=== PATIENT | female | born 1955 | race Caucasian/White ===

== ENCOUNTER 2021-03-02 10:36 | Outpatient (CLI) | payer MEDICARE, OTHER, SELFPAY ==
[2021-03-02 11:25] LABS: INR 0.9; Prothrombin Time 11.9 Seconds (11.1-14.7)
[2021-03-02 11:26] LABS: Partial Thromboplastin Time 27.2 SECONDS (22.3-36.8)
[2021-03-02 11:28] LABS: Anion Gap 7 mmol/L (8-16); Blood Urea Nitrogen 14 mg/dL (7-17); Calcium 9.5 mg/dL (8.4-10.2); Carbon Dioxide 29 mmol/L (22-30); Chloride 103 mmol/L (98-107); Estimated Glomerular Filt Rate > 60; Glucose 97 mg/dL (65-110); Potassium 4.2 mmol/L (3.4-5.0); Sodium 139 mmol/L (137-145)
== END 2021-03-02 10:37 | disposition home or self-care (01) ==
LOC: ANHSURGERY 10:44
PROVIDERS: Anesthesiology; PCP Urology; Visit Provider Obstetrics & Gynecology Gynecology
DX: N28.9 Disorder of kidney and ureter, unspecified (principal); Z01.818 Encounter for other preprocedural examination
CPT/HCPCS: 36415; 80048; 85610; 85730

== ENCOUNTER 2021-03-13 01:00 | Day surgery (SDC) | payer MEDICARE, OTHER, SELFPAY ==
[2021-02-28 13:41] VITALS: BMI 32.9
--- NOTE | 2021-03-13 08:26 | WPDHPUPDATE1 ---
History and Physical Update Update Date/Time: 03/13/21 08:26 History and Physical has been reviewed, including an updated exam of the patient. There are NO changes in the patient's condition. Risks, benefits, and alternatives have been discussed and questions answered. Patient agrees to proceed with procedure.
--- NOTE | 2021-03-13 08:26 | PM.HPGS ---
History of Present Illness History of Present Illness Consent: Risks, benefits, and alternatives have been discussed and questions answered. Patient agrees to proceed with procedure. Chief complaint: thick endometrial lining Narrative: Maddie Azar is a 65 year old female a CT scan performed while admitted for colitis which revealed a thickened endometrial lining. The patient denies vaginal bleeding. Pelvic ultrasound was performed and revealed the lining to be thickened at 6.7mm. The patient had similar findings in 2013 and underwent D&C hysteroscopy with benign atrophic findings. It was discussed with the patient and and options to follow versus D and C hysteroscopy were reviewed. Patient opted to proceed with D&C hysteroscopy. Risks of infection, bleeding, and perforation were reviewed. Possible pathology was also discussed. Patient voices understanding and agrees to proceed. Review of Systems Review of Systems: not repeated day of surgery; patient states no changes in status [facility] Past Medical History Medical History (Updated 03/13/21 @ 08:51 by Marii Armstrong MD) Anxiety HTN (hypertension) Hypothyroid Migraines (normal spontaneous vaginal delivery) Status post hysteroscopy Surgical History Surgical History (Updated 03/13/21 @ 08:30 by Marii Armstrong MD) Status post cardiac catheterization Status post cholecystectomy Status post tubal ligation Social History Social History Smoking status: Never smoker Alcohol intake: never Substance use: never Living arrangements: with family Additional living arrangements comments: [facility] Spiritual care concerns: No Meds Home Medications and Allergies Home Medications Medication Instructions Recorded Confirmed Type L.acid-L.casei-B.bif-B.reta-FOS 1 cap PO DAILY 02/28/21 02/28/21 History [Probiotic Blend] alprazolam [Xanax] 0.25 mg PO BID PRN 02/28/21 02/28/21 History aspirin [Aspir-81] 81 mg PO DAILY 02/28/21 02/28/21 History cholecalciferol (vitamin D3) 50 mcg PO DAILY 02/28/21 02/28/21 History levothyroxine 50 mcg PO QAM 02/28/21 02/28/21 History losartan 100 mg PO QPM 02/28/21 02/28/21 History montelukast 10 mg PO QPM 02/28/21 02/28/21 History multivitamin [Multiple Vitamin] 1 tablet PO DAILY 02/28/21 02/28/21 History omega-3 fatty acids-vitamin E 1 cap PO DAILY 02/28/21 02/28/21 History [Fish Oil] omeprazole 20 mg PO QPM 02/28/21 02/28/21 History Allergies Allergy/AdvReac Type Severity Reaction Status Date / Time azithromycin Allergy Unknown Redness of Verified 03/13/21 08:47 Skin morphine Allergy Unknown MAKES Unverified 03/13/21 08:47 CHEST HURT Sulfa (Sulfonamide Allergy Unknown redness of Verified 03/13/21 08:47 Antibiotics) skin, itching Exam Const: General: comfortable and no acute distress : External Female Exam: normal external appearance Speculum Exam - Vagina: normal appearance of the vagina Speculum Exam - Cervix: normal appearance of the cervix Bimanual exam- vagina & uterus: normal bimanual exam Assessment and Plan Assessment and plan (1) Thickened endometrium: Code(s): R93.89 - Abnormal findings on diagnostic imaging of other specified body structures Status: Acute Assessment and Plan: The plan is to Proceed with D&C hysteroscopy the
[2021-03-13 09:15] VITALS: BP 143/64; PULSE 62; RESP 16; TEMP 36.6; O2SAT 100
[2021-03-13] MEDS: LACTATED RINGERS 1,000 ML 30 ML IV CONT (09:22)
[2021-03-13] MEDS: ACETAMINOPHEN 500 MG TABLET 1000 MG PO (09:22)
--- NOTE | 2021-03-13 09:45 | P.PNAN_ITS ---
Anes - Initial Pre Proc Eval Procedure: Operation Date: 03/13/21 10:45 Proposed Procedures p Hysteroscopy, Dilation and Curettage - Marii Armstrong MD Date/Time: 03/13/21 09:45 Surgeon: Marii Armstrong MD Pre Op Diagnosis: thick endometrial lining Patient Data Age: 65 Gender: F Height: 1.55 m Weight: 79 kg Last Vital Signs Temp 36.6 C 03/13/21 09:15 Pulse 62 03/13/21 09:15 Resp 16 03/13/21 09:15 BP 143/64 H 03/13/21 09:15 Pulse Ox 100 03/13/21 09:15 Allergies Allergy/AdvReac Type Severity Reaction Status Date / Time azithromycin Allergy Unknown Redness of Verified 03/13/21 08:47 Skin morphine Allergy Unknown MAKES Verified 03/13/21 09:20 CHEST HURT Sulfa (Sulfonamide Allergy Unknown redness of Verified 03/13/21 08:47 Antibiotics) skin, itching Home Medications Medication Instructions Recorded Confirmed Type L.acid-L.casei-B.bif-B.reta-FOS 1 cap PO DAILY 02/28/21 03/13/21 History [Probiotic Blend] alprazolam [Xanax] 0.25 mg PO BID PRN 02/28/21 03/13/21 History aspirin [Aspir-81] 81 mg PO DAILY 02/28/21 03/13/21 History cholecalciferol (vitamin D3) 50 mcg PO DAILY 02/28/21 03/13/21 History levothyroxine 50 mcg PO QAM 02/28/21 03/13/21 History losartan 100 mg PO QPM 02/28/21 03/13/21 History montelukast 10 mg PO QPM 02/28/21 03/13/21 History multivitamin [Multiple Vitamin] 1 tablet PO DAILY 02/28/21 03/13/21 History omega-3 fatty acids-vitamin E 1 cap PO DAILY 02/28/21 02/28/21 History [Fish Oil] omeprazole 20 mg PO QPM 02/28/21 02/28/21 History Patient hx anesthesia problems: none Family hx anesthesia problems: none Results Review: All pre-operative results and documents have been reviewed as part of the pre-operative evaluation. [facility], LAT[facility] Past Medical History Medical History Anxiety Chronic renal insufficiency HTN (hypertension) Hypothyroid Migraines (normal spontaneous vaginal delivery) Status post hysteroscopy Surgical History Surgical History Status post cardiac catheterization Status post cholecystectomy Status post tubal ligation Social History Social History Smoking status: Never smoker Alcohol intake: never Substance use: never Living arrangements: with family Additional living arrangements comments: [facility]USB Spiritual care concerns: No Anes - Eval Final PreProcedure Day of Procedure 03/13/21 09:45 Patient weight: obese Heart: regular rate and rhythm Lungs: clear to auscultation Airway: Mallampati scale class II Neurological: alert and oriented Last oral intake: >/= 8 hours ASA classification: III Emergent: no Anesthetic plan: proceed Anesthesia type and monitoring: general GIVS and standard monitoring Results Review: All pre-operative results and documents have been reviewed as part of the pre-operative evaluation. Informed Consent: The patient's anesthetic plan and its attendant risks and benefits were discussed with the patient/family/POA. Questions were solicited and answers provided to the s
[2021-03-13] MEDS: LIDOCAINE HCL 1% PF 30 ML VIAL INFILTRATE (10:33)
--- NOTE | 2021-03-13 10:42 | P.OP_ITS ---
Procedure Note - Detailed Date of Procedure 03/13/21 Pre-op Diagnosis thick endometrial lining Post-op Diagnosis same (Plus polyp) Procedure Performed D&C hysteroscopy with MyoSure resection of polyp Surgeon Marii Armstrong MD Anesthesia MAC and local Findings The uterus sounds to 7cm there was a large posterior polyp, a small polyp on the right cornua, and a small calcified area anteriorly. Remainder of the endometrium appears atrophic. Description of Procedure The patient was taken to the operating room and placed under anesthesia in the dorsal lithotomy position. She was prepped and draped in usual sterile fashion. [place] speculum was placed in the vagina, cervix is grasped on the anterior lip with a tenaculum, and injected with 1% lidocaine in each quadrant. The uterus sounded to 7cm. The cervix is serially dilated with [place]. The diagn ostic hysteroscope was placed with the stated findings. MyoSure device and scope are opened and placed. Under direct visualization the polyps are removed with the MyoSure device. The hysteroscope was removed and the medium sharp curette is used to sharply curette the endometrium until a good uterine cry was noted in all areas. Minimal material was obtained consistent with the atrophic appearance of the remainder of the endometrium. The instruments are removed and the patient awakened from anesthesia. Sponge, needle, and instrument counts are correct per the OR staff. Estimated Blood Loss 5 Drains No Pathology yes (Endometrial shavings and curettings) Complications No immediate complications Condition stable Disposition PACU
[2021-03-13 10:45] VITALS: BP 102/51; PULSE 61; RESP 12; O2SAT 94
[2021-03-13] MEDS: oxyCODONE HCL (*CRX) 5 MG TAB IR PO (11:02)
[2021-03-13 11:15] VITALS: BP 150/76; PULSE 52
[2021-03-13 11:30] VITALS: BP 138/75; PULSE 54
== END 2021-03-13 11:39 | disposition home or self-care (01) ==
PROVIDERS: PCP Urology; Visit Provider Obstetrics & Gynecology Gynecology
PROC: 0U5B8ZZ Destruction of Endometrium, Via Natural or Artificial Opening Endoscopic (ICD-10-PCS; CPT 58563; principal; 2021-03-13 10:45)
DX: N84.0 Polyp of corpus uteri (principal); Z79.82 Long term (current) use of aspirin; E03.9 Hypothyroidism, unspecified; F41.9 Anxiety disorder, unspecified; I10 Essential (primary) hypertension; E66.9 Obesity, unspecified; Z68.32 Body mass index [BMI] 32.0-32.9, adult
CPT/HCPCS: 58558; 88305; A9270; J2704; J3010; J7030; J7120